=== PATIENT | female | born 1995 | race Caucasian/White ===

== ENCOUNTER 2024-05-04 11:37 | Emergency (ER) | payer OTHER, SELFPAY ==
[2024-05-04 12:53] LABS: Absolute Eosinophils 0.1 K/uL (0-0.5); Absolute Lymphocytes (CBC) 2.6 K/uL (0.7-4.9); Absolute Monocytes 0.3 K/uL (0.1-1.3); Absolute Neutrophil 3.1 K/uL (1.8-8.0); Basophils % 0.3 % (0-1.3); Eosinophils % 1.2 % (0-4.4); Hemoglobin 11.8 g/dL (12.0-15.0); Lymphocytes % 43.5 % (15.3-44.8); MCH 27.6 pg (27.0-35.0); MCHC 33.6 g/dL (32.0-36.0); MCV 82.2 fL (80-100); MPV 7.2 fL (7.6-11.3); Monocytes % 4.3 % (3.3-12.3); Neutrophils % 50.7 % (41.7-73.7); Platelets 356 thou/uL (152-406); RBC Red Blood Cell Count 4.26 M/uL (3.86-4.86); Red Cell Distribution Width 14.6 % (12.1-15.2)
[2024-05-04 12:54] LABS: Sqamous Epithelial <5 /HPF (None Seen); Urine Bacteria None Seen /HPF (<20); Urine Bilirubin NEGATIVE (Negative); Urine Blood 1+ (Negative); Urine Clarity Clear (Clear); Urine Color Light-Yellow (Yellow); Urine Culture Reflex Order NOT NEEDED; Urine Glucose NEGATIVE (Negative); Urine Ketones NEGATIVE (Negative); Urine Microscopic Reflex YN ORDER UMIC; Urine Mucus 1+ /HPF (None Seen); Urine Nitrite NEGATIVE (Negative); Urine Protein NEGATIVE (Negative); Urine RBC <5 /HPF (None Seen); Urine Urobilinogen Normal (Normal); Urine WBC <5 /HPF (<5); Urine pH 5.5 (5.0-7.0)
[2024-05-04] MEDS ORDERED: MORPHINE 4 MG/ML SYR ONE (12:55)
[2024-05-04] MEDS ORDERED: ONDANSETRON 4 MG/2 ML VIAL ONE (12:55)
[2024-05-04] MEDS ORDERED: NA CHLORIDE 0.9% 1,000 ML ONE (12:55)
[2024-05-04 13:10] LABS: ALT/SGPT 17 U/L (13-56); Albumin 3.7 g/dL (3.4-5.0); Albumin/Globulin Ratio 0.9 (1.1-1.8); Alkaline Phosphatase 87 U/L (45-117); Anion Gap 8.8 mEq/L (5.0-15.0); BUN Blood Urea Nitrogen 16 mg/dL (7-18); Bicarbonate 25 mEq/L (21-32); Bilirubin Total 0.3 mg/dL (0.2-1.0); Globulin 4.1 g/dL (2.3-3.5); Glomerular Filtration Rate 129 ml/min (=/>90); Glucose Level 113 mg/dL (74-106); Lipase 30 U/L (13-75); Potassium 3.8 mEq/L (3.5-5.1); Protein, Total 7.8 g/dL (6.4-8.2); Sodium Level 138 mEq/L (136-145)
[2024-05-04 13:14] LABS: AST/SGOT < 10 U/L (15-37)
--- NOTE | 2024-05-04 13:40 | RAD REPORT ---
EXAM DESCRIPTION: CTAbdomen Pelvis W Contrast - 05/04/2024 1:32 pm CLINICAL HISTORY: Abdominal pain. Abd bandar COMPARISON: Pelvis Complete dated 05/04/2024 TECHNIQUE: CT imaging of the abdomen and pelvis was performed with 100 ml non-ionic IV contrast. All CT scans are performed using dose optimization technique as appropriate and may include automated exposure control or mA/KV adjustment according to patient size. FINDINGS: The lung bases are clear. The liver demonstrates mild fatty infiltration. Spleen, pancreas, adrenal glands and kidneys are with in normal limits. No bowel obstruction, free air, free fluid or abscess. The appendix is normal. No evidence of signi ficant lymphadenopathy. Mild spondylosis L5-S1. IMPRESSION: No acute intra-abdominal or pelvic finding. Mild fatty liver.
--- NOTE | 2024-05-04 13:51 | RAD REPORT ---
EXAM DESCRIPTION: US - Transvaginal Study Probe - 05/04/2024 1:41 pm CLINICAL HISTORY: assess ovaries for flow;Abd pain Pelvic pain. COMPARISON: No comparisons FINDINGS: The uterus is normal in size, shape and echotexture. The uterus measures 7.2 x 5.5 x 3.8 c m. The endometrial stripe measures 8 mm, normal. Both ovaries are normal in size, shape and echotexture. The right ovary measures 2.7 x 1.8 x 1.7 cm. The left ovary measures 2.7 x 1.9 x 1.7 cm. No ovarian or parovarian lesions. No adnexal masses. Normal Doppler blood flow was demonstrated to both ovaries. No significant pelvic ascites. IMPRESSION: Unremarkable study.
--- NOTE | 2024-05-04 13:55 | EDPHYS ---
Physician Documentation [facility] Name: Tara Aguilar Age: 28 yrs Sex: Female : 1995 Arrival Date: 05/04/2024 Time: 11:37 Bed 20 Private MD: ED Physician Phyllis Enriquez HPI: 05/04 12:29 This 23 yrs old Female presents to ER via Ambulatory with complaints of Abdominal Pain. sp3 12:29 22-year-old female with no past medical history presents to the ED with chief complaint sp3 right lower quadrant abdominal pain for the last 4 to 6 hours. She denies any other symptoms including fever, headache, neck pain, chest pain, shortness of breath, abdominal pain, vomiting, diarrhea, rash, syncope, near syncope, potential bad food, travel history, or any other signs or symptoms on ROS at this time.. Historical: - Allergies: 12:03 No Known Allergies; ap3 - Home Meds: 12:03 None [Active]; ap3 - PMHx: 12:03 None; ap3 - Immunization history:: Adult Immunizations up to date. - Infectious Disease History:: Denies. - Social history:: Smoking status: Patient denies any tobacco usage or history of. ROS: 12:29 Constitutional: Negative for fever, chills, and weight loss, Eyes: Negative for injury, sp3 pain, redness, and discharge, ENT: Negative for injury, pain, and discharge, Neck: Negative for injury, pain, and swelling, Cardiovascular: Negative for chest pain, palpitations, and edema, Respiratory: Negative for shortness of breath, cough, wheezing, and pleuritic chest pain, Back: Negative for injury and pain, MS/Extremity: Negative for injury and deformity, Skin: Negative for injury, rash, and discoloration, Neuro: Negative for headache, weakness, numbness, tingling, and seizure, Psych: Negative for depression, anxiety, suicide ideation, homicidal ideation, and hallucinations, Allergy/Immunology: Negative for hives, rash, and allergies, Endocrine: Negative for neck swelling, polydipsia, polyuria, polyphagia, and marked weight changes, 12:29 All other systems are negative, Exam: 12:29 Constitutional: This is a well developed, well nourished patient who is awake, alert, sp3 and in no acute distress. Head/Face: Normocephalic, atraumatic. Eyes: Pupils equal round and reactive to light, extra-ocular motions intact. Lids and lashes normal. Conjunctiva and sclera are non-icteric and not injected. Cornea within normal limits. Periorbital areas with no swelling, redness, or edema. Neck: Trachea midline, no thyromegaly or masses palpated, and no cervical lymphadenopathy. Supple, full range of motion without nuchal rigidity, or vertebral point tenderness. No Meningismus. Chest/axilla: Normal chest wall appearance and motion. Nontender with no deformity. No lesions are appreciated. Cardiovascular: Regular rate and rhythm with a normal S1 and S2. No gallops, murmurs, or rubs. Normal PMI, no JVD. No pulse deficits. Respiratory: Lungs have equal breath sounds bilaterally, clear to auscultation and percussion. No rales, rhonchi or wheezes noted. No increased work of breathing, no retractions or nasal flaring. Back: No spinal tenderness. No costovertebral tenderness. Full range of motion. Skin: Warm, dry with normal turgor. Normal color with no rashes, no lesions, and no evidence of cellulitis. MS/ Extremity: Pulses equal, no cyanosis. Neurovascular intact. Full, normal range of motion. Neuro: Awake and alert, GCS 15, oriented to person, place, time, and situation. Cranial nerves II-XII grossly intact. Motor strength 5/5 in all extremities. Sensory grossly intact. Cerebellar exam normal. Normal gait. Psych: Awake, alert, with orientation to person, place and time. Behavior, mood, and affect are within normal limits. Vital Signs: 12:00 BP 133 / 87; Pulse 73; Resp 17; Temp 97.6; Pulse Ox 100% ; Weight 83.91 kg; Height 5 ap3 ft. 2 in. ; Pain 10/10; 14:30 BP 127 / 79; Pulse 75; Resp 16; Pulse Ox 100% ; bp 12:00 Body Mass Index 33.84 (83.91 kg, 157.48 cm) ap3 12:00 Pain Scale: Adult ap3 MDM: 11:55 Patient medically screened. sp3 12:30 Data reviewed: vital signs, nurses notes, lab test result(s), radiologic studies. ED sp3 course: 23-year-old female with right lower quadrant abdominal pain. 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 Patient is currently on her menses and so menstrual cramps is also on the differential. Will assess with CT scan of the abdomen pelvis, ultrasound assessing the ovary on the right side, and general laboratory values as well as UA. If workup is negative we will safely discharge patient home otherwise appropriate invention will be taken as indicated.. 13:54 ED course: Full workup negative including CT abdomen and ultrasound. Will safely sp3 discharge patient home.. 05/04 12:11 Order name: CBC with Diff; Complete Time: 13:17 sp3 05/04 12:11 Order name: CMP; Complete Time: 13:17 sp3 05/04 12:11 Order name: Lipase; Complete Time: 13:17 sp3 05/04 12:11 Order name: Test, Urine; Complete Time: 13:17 sp3 05/04 12:11 Order name: Urinalysis w/ reflexes; Complete Time: 13:17 sp3 05/04 12:11 Order name: CT Abd/Pelvis - IV Contrast Only; Complete Time: 13:53 sp3 05/04 13:43 Order name: Transvaginal Study Probe; Complete Time: 13:53 EDMS 05/04 12:11 Order name: IV Saline Lock; Complete Time: 12:33 sp3 05/04 12:11 Order name: Labs collected and sent; Complete Time: 12:33 sp3 Administered Medications: 13:01 Drug: NS 0.9% IV 1000 ml IV at 1 bolus Per protocol; 1000 mL bolus Route: IV; Rate: 1 bp bolus; Site: right forearm; 14:32 Follow up: IV Status: Completed infusion; IV Intake: 1000ml bp 13:01 Drug: Ondansetron IVP 4 mg IVP once; over 2 minutes Route: IVP; Site: right forearm; bp 14:32 Follow up: Response: No adverse reaction bp 13:01 Drug: morphine IVP or IV 4 mg IVP once over 4 mins Route: IVP; Infused Over: 4 mins; bp Site: right forearm; 14:32 Follow up: Response: No adverse reaction bp Disposition Summary: 05/04/24 13:54 Discharge Ordered Notes: Location: Home sp3 Condition: Stable sp3 Diagnosis - Abdominal pain sp3 Followup: sp3 - With: Private Physician - When: Upon discharge from the Emergency Department - Reason: Recheck today's complaints Discharge Instructions: - Discharge Summary Sheet sp3 - Abdominal Pain, Adult sp3 Forms: - Medication Reconciliation Form sp3 - Antibiotic Education sp3 - Prescription Opioid Use sp3 - Patient Portal Instructions sp3 - Leadership Thank You Letter sp3 Prescriptions: - Tramadol 50 mg Oral Tablet - take 1 tablet ORAL route every 8 hours as needed; 12 tablet; Refills: 0, sp3 Product Selection Permitted Signatures: Dispatcher [employer] EDMS Alex Alvarez, RN RN bp Lenore Mas RN RN ap3 Phyllis Enriquez MD MD sp3 Corrections: (The following items were deleted from the chart) 12:11 12:11 CBC+H.LAB.BRZ ordered. EDMS EDMS 12:11 12:11 COMPREHENSIVE METABOLIC PANEL+C.LAB.BRZ ordered. EDMS EDMS 12:11 12:11 LIPASE+C.LAB.BRZ ordered. EDMS EDMS 12:11 12:11 Test, Urine+UC.LAB.BRZ ordered. EDMS EDMS 12:11 12:11 Urinalysis+U.LAB.BRZ ordered. EDMS EDMS 13:43 12:32 Pelvis Complete+US.RAD.BRZ ordered. EDMS EDMS
--- NOTE | 2024-05-04 13:55 | ER ---
Nurse's Notes [facility] Name: Tara Aguilar Age: 28 yrs Sex: Female : 1995 Arrival Date: 05/04/2024 Time: 11:37 Bed 20 Private MD: Diagnosis: Abdominal pain Presentation: 05/04 12:00 Chief complaint: Patient states: she started having abdominal pain last night that ap3 started as a throbbing pain but has since become more sharp. patient currently states her pain as a 10/10 on the pain scale. Coronavirus screen: At this time, the client does not indicate any symptoms associated with coronavirus-19. Ebola Screen: No symptoms or risks identified at this time. Initial Sepsis Screen: Does the patient meet any 2 criteria? No. Patient's initial sepsis screen is negative. Does the patient have a suspected source of infection? No. Patient's initial sepsis screen is negative. Risk Assessment: Do you want to hurt yourself or someone else? Patient reports no desire to harm self or others. Onset of symptoms was May 03, 2024. 12:00 Method Of Arrival: Ambulatory ap3 12:00 Acuity: ALESHIA 3 ap3 Triage Assessment: 12:03 General: Appears uncomfortable, Behavior is calm, cooperative, appropriate for age. ap3 Pain: Complains of pain in abdomen. Neuro: Level of Consciousness is awake, alert, obeys commands, Oriented to person, place, time, situation. Cardiovascular: Patient's skin is warm and dry. Respiratory: Airway is patent Respiratory effort is even, unlabored, Respiratory pattern is regular, symmetrical. GI: Reports lower abdominal pain, upper abdominal pain, nausea, normal bowel habits. Historical: - Allergies: 12:03 No Known Allergies; ap3 - Home Meds: 12:03 None [Active]; ap3 - PMHx: 12:03 None; ap3 - Immunization history:: Adult Immunizations up to date. - Infectious Disease History:: Denies. - Social history:: Smoking status: Patient denies any tobacco usage or history of. Screenin:03 Abuse screen: Denies threats or abuse. Nutritional screening: No deficits noted. ap3 Tuberculosis screening: No symptoms or risk factors identified. 12:04 [facility] ED Fall Risk Assessment (Adult) History of falling in the last 3 months, ap3 including since admission No falls in past 3 months (0 pts) Confusion or Disorientation No (0 pts) Intoxicated or Sedated No (0 pts) Impaired Gait No (0 pts) Mobility Assist Device Used No (0 pt) Altered Elimination No (0 pt) Score/Fall Risk Level 0 - 2 = Low Risk Oriented to surroundings, Maintained a safe environment, Educated pt \T\ family on fall prevention, incl call for assistance when getting out of bed, Assessed \T\ reinforced patient's understanding of fall precautions, Hourly rounding (assess needs \T\ fall precautionary measures) done, Used ambulatory aids as needed (educated on \T\ assisted with), Used gait belt as appropriate. Assessment: 12:10 General: Appears in no apparent distress. uncomfortable, Behavior is cooperative, bp appropriate for age, anxious. 14:30 Reassessment: DC HOME AMBULATORY. bp Vital Signs: 12:00 BP 133 / 87; Pulse 73; Resp 17; Temp 97.6; Pulse Ox 100% ; Weight 83.91 kg; Height 5 ap3 ft. 2 in. ; Pain 10/10; 14:30 BP 127 / 79; Pulse 75; Resp 16; Pulse Ox 100% ; bp 12:00 Body Mass Index 33.84 (83.91 kg, 157.48 cm) ap3 12:00 Pain Scale: Adult ap3 ED Course: 11:40 Patient arrived in ED. mg5 11:41 Phyllis Enriquez MD is Attending Physician. sp3 12:03 Triage completed. ap3 12:04 Arm band placed on right wrist. ap3 12:04 Patient has correct armband on for positive identification. Call light in reach. Side ap3 rails up X 1. Provided Education on: call light use. Pulse ox on. NIBP on. Door closed. Noise minimized. 12:06 Alex Alvarez, REENA is Primary Nurse. bp 12:33 Initial lab(s) drawn, by me, sent to lab. Urine collected: clean catch specimen, clear. bp Inserted saline lock: 20 gauge in right forearm, using aseptic technique. Blood collected. 13:34 CT Abd/Pelvis - IV Contrast Only In Process Unspecified. EDMS 13:43 Transvaginal Study Probe In Process Unspecified. EDMS 14:30 No provider procedures requiring assistance completed. IV discontinued, intact, bp bleeding controlled, No redness/swelling at site. Pressure dressing applied. Administered Medications: 13:01 Drug: NS 0.9% IV 1000 ml IV at 1 bolus Per protocol; 1000 mL bolus Route: IV; Rate: 1 bp bolus; Site: right forearm; 14:32 Follow up: IV Status: Completed infusion; IV Intake: 1000ml bp 13:01 Drug: Ondansetron IVP 4 mg IVP once; over 2 minutes Route: IVP; Site: right forearm; bp 14:32 Follow up: Response: No adverse reaction bp 13:01 Drug: morphine IVP or IV 4 mg IVP once over 4 mins Route: IVP; Infused Over: 4 mins; bp Site: right forearm; 14:32 Follow up: Response: No adverse reaction bp Medication: 14:30 VIS not applicable for this client. bp Intake: 14:32 IV: 1000ml; Total: 1000ml. bp Outcome: 13:54 Discharge ordered by MD. [email or web address] 14:30 Discharged to home ambulatory, bp 14:30 Condition: stable 14:30 Discharge instructions given to patient, Instructed on discharge instructions, follow up and referral plans. medication usage, Demonstrated understanding of instructions, follow-up care, medications, Prescriptions given X 1, 14:33 Patient left the ED. bp 14:35 Patient left the ED. Signatures: Dispatcher [employer] EDAK Joahnne Wade RN RN Alex Alvarez RN RN Lenore Dennison RN RN bree3 Phyllis Enriquez MD MD sp3 Khushboo Funk 5 Corrections: (The following items were deleted from the chart) 13:43 13:38 In radiology for Pelvis Complete+US.RAD.BRZ. EDAK EDAK
[2024-05-04 14:42] VITALS: TEMP 97.6; O2SAT 100
[2024-05-04 14:50] VITALS: BP 133/87
== END 2024-05-04 14:35 | disposition home or self-care (01) ==
LOC: ER 11:37 → EDBD 11:37 → ER 14:33
DX: R10.31 Right lower quadrant pain (principal)
CPT/HCPCS: 36415; 74177; 76830; 80053; 81001; 81025; 83690; 85025; 96361; 96374; 96375; 99284; J2405; J7030; Q9967